=== PATIENT | male | born 2000 | race Caucasian/White ===

== ENCOUNTER 2023-12-05 15:27 | Emergency (ER) | payer SELFPAY ==
[~2023-12-05] VITALS: Ht 185.4 cm; Wt 71.0 kg
[2023-12-05 15:32] VITALS: O2SAT 98
[2023-12-05] MEDS: LIDOCAINE HCL/PF 1% 10 MG/ML 5ML VIAL INFIL ONE (17:45)
[2023-12-05] MEDS: BACITRACIN ZINC OINT UDPKT TOP ONE (17:45)
[2023-12-05] MEDS ORDERED: CEPH500C2 MT (18:38)
[2023-12-05 19:05] VITALS: BP 125/85; PULSE 82; RESP 16; TEMP 98.8
== END 2023-12-05 19:08 | disposition home or self-care (01) ==
LOC: ER 15:27
DX: S61.211A Laceration without foreign body of left index finger without damage to nail, initial encounter (principal); W26.0XXA Contact with knife, initial encounter; Y93.89 Activity, other specified; Y92.89 Other specified places as the place of occurrence of the external cause; Y99.8 Other external cause status
CPT/HCPCS: 73140; 12002; 99283; Z7610